=== PATIENT | female | born 1940 | race Caucasian/White ===

== ENCOUNTER 2016-06-03 10:47 | Outpatient (CLI) | payer MEDICARE, OTHER ==
[2016-04-24 09:52] VITALS: BP 96/43
[2016-06-03 11:05] LABS: BASOPHILS % 0.4 (0.0-1.5); EOSINOPHILS % 2.9 % (0.0-6.8); LYMPHOCYTES # 1.4 # k/uL (0.6-4.0); MEAN CORPUSCULAR HEMOGLOBIN 34.6 pg (28.0-34.0); MONOCYTES # 0.3 # k/uL (0.0-0.9); MONOCYTES % 7.6 % (0.0-11.0); NEUTROPHILS # 2.3 # k/uL (1.4-7.7)
[2016-06-03 11:50] LABS: eGFR (African) > 60; eGFR (Non-African) > 60
== END 2016-06-03 10:50 ==
LOC: LAB 10:47
PROVIDERS: ATTEND Family Medicine
DX: I10 Essential (primary) hypertension (principal)
CPT/HCPCS: 36415; 80053; 85025

== ENCOUNTER 2017-07-07 11:42 | Outpatient (CLI) | payer MEDICARE, OTHER ==
[2016-04-24 09:52] VITALS: BP 96/43
[2017-07-07 12:14] LABS: BASOPHILS % 0.3 (0.0-1.5); EOSINOPHILS % 2.7 % (0.0-6.8); MEAN CORPUSCULAR HEMOGLOBIN 34.4 pg (28.0-34.0); MEAN CORPUSCULAR VOLUME 98.8 fl (80.0-100.0); MONOCYTES % 7.4 % (0.0-11.0); NEUTROPHILS # 1.8 # k/uL (1.4-7.7)
[2017-07-07 12:38] LABS: eGFR (African) > 60; eGFR (Non-African) 42
== END 2017-07-07 13:28 ==
LOC: LAB 11:42
PROVIDERS: ATTEND Family Medicine
DX: I10 Essential (primary) hypertension (principal); R73.9 Hyperglycemia, unspecified; D50.8 Other iron deficiency anemias
CPT/HCPCS: 36415; 80053; 80061; 83036; 85025

== ENCOUNTER 2018-07-24 12:40 | Outpatient (CLI) | payer MEDICARE, OTHER ==
[2016-04-24 09:52] VITALS: BP 96/43
--- NOTE | 2018-07-24 14:36 | Diagnostic Imaging Report ---
HAILEY ORR [facility] [address] [facility] [address] [address] Report Submission Date: Jul 24, 2018 2:28:25 PM CDT Patient Study Name: LEONCIO BRAGG Date: Jul 24, 2018 12:58:41 PM CDT Modality Type: US Gender: F Description: US DUPLEX CAROTID BILATERAL : 42 Institution: [facility] Physician: HAILEY ORR Examination: Carotid artery ultrasound History: Doctor heard bruit in office Comparison exams: None available Findings: Right carotid: Common carotid artery peak systolic velocity 76.8 cm/s; end diastolic velocity 9.0 cm/s. Internal carotid artery peak systolic velocity 69.5 cm/s; end diastolic velocity 16.7 cm/s. External carotid artery velocity to 66.6 cm/s. Vertebral artery velocity 71.1 cm/s Vertebral flow antegrade. Normal waveforms. Scattered plaquing. Left carotid: Common carotid artery peak systolic velocity 99.5 cm/s; end diastolic velocity 10.0 cm/s. Internal carotid artery peak systolic velocity 69.0 cm/s; end diastolic velocity 18.1 cm/s. External carotid artery velocity to 74.2 cm/s. Vertebral artery velocity 74.7 cm/s Vertebral flow antegrade. Normal waveforms. Scattered plaquing. Narrowing at the carotid bulb by approximately 49% Right ICA/CCA Ratio: 1.3; Left ICA/CCA Ratio 0.9 Impression: Carotids ratios not elevated. No restriction to hemodynamic flow. Narrowing at the left carotid bulb by approximately 49% Electronically signed on Jul 24, 2018 2:28:25 PM CDT by: Abe MOSLEY
== END 2018-07-24 12:50 ==
LOC: RAD 12:40
PROVIDERS: ATTEND Family Medicine
DX: R09.89 Other specified symptoms and signs involving the circulatory and respiratory systems (principal)
CPT/HCPCS: 93880